=== PATIENT | male | born 1965 | race Caucasian/White ===

== ENCOUNTER → 2017-10-03 | Day surgery (SDC) | payer MEDICARE, MEDICAID ==
[~2017-10-03] MED LIST: ADVAIR 500-501 EACH INH; AZITHROMYCIN 2250 MG PO; BENZTROPINE MES1 MG PO; BETIMOL5 ML OP; BUSPIRONE HCL10 MG PO; CLONAZEPAM 0.50.5 M1 PO; COLACE100 MG PO; EPOGEN2000 UNIT/ HEMODIALYS; FLOMAX0.4 MG PO; FLUPHENAZINE 5 M5 MG PO; GABAPENTIN 100100 MG PO; GEMFIBROZIL 60600 MG PO; KEFLEX500 M1 PO; LOPRESSOR50 PO; NIACIN ER500 MG PO; NORVASC5 MG PO; NOVOLOG100 UNIT/1 SUBQ; PREDNISONE 10 M10 MG PO; RENAPLEX D PO; RENVELA800 MG PO; TIMOLOL GL0.5 %/5 M1 OPHTHALMIC; TRAZODONE HCL50 MG PO; VENTOLIN HFA 1818 GM INH; ZANTAC 150MG T150 MG PO
--- NOTE | ~2017-10-03 | PROC ---
[address] [address] PROCEDURE REPORT Name: ELISA MEDEROS Room: [facility].#: [id number] Admission: 10/03/17 Attend Phys: Efren Weston MD Discharge: Date of : 67 Report #: [id number] THIS REPORT FOR: //name// For GI report, please see the Provation report in Perceptive 7 content. By: [id number] Records Staff [facility] /JEREMIAH
[2017-10-03 12:46] LABS: HEMATOCRIT 29.9 % (42.0-52.0); HEMOGLOBIN 10.4 gm/dL (14.0-18.0); MCV 100.2 fL (80.0-100.0); MPV 6.8 fl. (7.2-11.1); RBC 2.98 mil/uL (4.50-6.00); RDW-CV 13.3 % (10.5-14.5); WBC 7.5 thou/uL (4.0-11.0)
[2017-10-03 13:02] LABS: CALCIUM 8.9 mg/dL (8.5-10.1); CREATININE 5.5 mg/dL (0.6-1.3); POTASSIUM 3.9 mmol/L (3.5-5.1)
[2017-10-03 13:06] LABS: ALBUMIN 2.8 g/dL (3.4-5.0); TOTAL BILIRUBIN 0.3 mg/dL (<0.1-1.0)
--- NOTE | 2017-10-03 16:03 | EKG ---
[place] [address] ELECTROCARDIOGRAM REPORT Name: ELISA MEDEROS Room: [facility]#: [id number] Admission: 10/03/17 Attend Phys: Efren Weston MD Discharge: Date of : 67 Report #: [id number] THIS REPORT FOR: //name// [facility] Test Date: 2017-10-03 Test Time: 12:05:50 Pat Name: ELISA MEDEROS Department: Room: Gender: M Windlasser: [facility] : 1965 Requested By: Efren Weston Order Number: [id number] Reading MD: Magdiel Lundberg Measurements Intervals [place] Rate: 68 P: 31 NM: 151 QRS: 4 QRSD: 95 T: 34 QT: 449 QTc: 478 Interpretive Statements Sinus rhythm Paired ventricular premature complexes Borderline prolonged QT interval No previous ECG available for comparison Electronically Signed On 10-03-2017 16:03:27 [employer]ANNING [employer]ISION SUPERINTENDENT by Magdiel Lundberg [email or web address] <ELECTRONICALLY SIGNED> By: Magdiel Lundberg MD, [facility] 10/03/17 1603 1205 1205 Magdiel Lundberg MD, FACC /EPI
--- NOTE | 2017-10-04 11:55 | S ---
[place] [address] SURGICAL PATH RPT PROCEDURE Name: MEDEROSELISA Mobley Room: [facility]#: [id number] Admission: 10/03/17 Date of : 67 Discharge: Report #: [id number] Path Case #: [id number] PATHOLOGY REPORT COLLECTION DATE: 10/03/2017 RECEIVED DATE: 10/03/2017 SUBMITTING PHYS: Dr. Efren Weston OTHER PHYS: Dr. Kofi Gates SPECIMEN(S) RECEIVED: A.Duodenum B.Transverse polyp * * * * * * * * * * * * FINAL DIAGNOSIS: A. Duodenal biopsy: - Mild active duodenitis with fundic gland metaplasia suggesting peptic ulcer disease, negative for granulomas, significant intraepithelial lymphocytosis and dysplasia. - See comment. B. Transverse colon polyp: - Tubular adenoma, negative for high grade dysplasia. COMMENT: Because there is no significant intraepithelial lymphocytosis in the duodenal biopsy (A), celiac disease is unlikely. (JUDAH:mml; 10/04/2017) PATHOLOGIST: Usman Callahan M.D. REPORT ELECTRONICALLY SIGNED BY: Usman Callahan M.D. DATE/TIME: 10/04/2017 11:55 * * * * * * * * * * * * GROSS PATHOLOGY: A. Received in formalin labeled "Elisa Mederos, duodenal biopsy," and additionally labeled on the requisition as "biopsy," is a segment of french soft tissue measuring 0.5 cm in maximum dimension. The specimen is submitted entirely in cassette A1. After filtration of the specimen container, no additional tissue was recovered. B. Received in formalin labeled "Elisa Mederos, transverse colon polyp," is a segment of french soft tissue measuring 0.3 cm in maximum dimension. The specimen is submitted entirely in cassette B1. (TSD; 10/03/2017) CLINICAL HISTORY: Rectal bleeding [facility] [address] [place] [address] SURGICAL PATH RPT PROCEDURE Name: ELISA MEDEROS Room: [facility]#: [id number] Admission: 10/03/17 Date of : 67 Discharge: Report #: [id number] Path Case #: [id number] INITIAL CPT CODE(S): A; 41273 B; 80809 Professional services performed by [employer] at [facility], [address] [place] [id number]. Technical services performed by [employer] at [address] [place] [address], [facility] [address] [address]. [facility] [address] [address] PHONE: [phone] DIRECTOR: Stefan Vasquez M.D. * * * END OF REPORT * * *
== END | disposition home or self-care (01) ==
LOC: M.SUR 10:15
PROVIDERS: Internal Medicine Gastroenterology
DX: D12.3 Benign neoplasm of transverse colon (principal); K64.8 Other hemorrhoids; K44.9 Diaphragmatic hernia without obstruction or gangrene; K29.80 Duodenitis without bleeding; K21.9 Gastro-esophageal reflux disease without esophagitis; F41.9 Anxiety disorder, unspecified; I12.0 Hypertensive chronic kidney disease with stage 5 chronic kidney disease or end stage renal disease; E11.22 Type 2 diabetes mellitus with diabetic chronic kidney disease; N18.6 End stage renal disease; E03.9 Hypothyroidism, unspecified; Z87.891 Personal history of nicotine dependence; Z99.2 Dependence on renal dialysis

== ENCOUNTER 2018-02-12 19:54 | Inpatient (IN) | payer MEDICARE, MEDICAID ==
[~2018-02-12] VITALS: Ht 172.7 cm; Wt 76.7 kg
[~2018-02-12 19:54] MED LIST changes: -AZITHROMYCIN 2250 MG PO; -BETIMOL5 ML OP; -COLACE100 MG PO; -KEFLEX500 M1 PO; -NOVOLOG100 UNIT/1 SUBQ; -PREDNISONE 10 M10 MG PO
[2018-02-12 19:58] VITALS: BP 124/64
[2018-02-12] MEDS ORDERED: COLACE100 MG PO (20:10)
[2018-02-12] MEDS ORDERED: NOVOLOG100 UNIT/1 SUBQ (20:10)
[2018-02-12] MEDS ORDERED: BETIMOL5 ML OP (20:11)
[2018-02-12 20:32] LABS: HEMOGLOBIN 10.7 gm/dL (14.0-18.0); MCH 34.5 pg (26.0-34.0); MCHC 34.6 g/dL (28.0-37.0); MCV 99.9 fL (80.0-100.0); MPV 7.2 fl. (7.2-11.1); NUCLEATED RBCS 0 /100WBC; PLATELET COUNT* 163 thou/uL (150-400); RBC 3.11 mil/uL (4.50-6.00); RDW-CV 13.9 % (10.5-14.5); WBC 15.8 thou/uL (4.0-11.0)
[2018-02-12 20:43] LABS: ANION GAP 11 mmol/L (7-16); BUN 50 mg/dL (7-18); CALCIUM 9.5 mg/dL (8.5-10.1); CHLORIDE 95 mmol/L (98-107); CO2 29 mmol/L (21-32); CREATININE 7.7 mg/dL (0.6-1.3); GLUCOSE 218 mg/dL (70-99); POTASSIUM 3.3 mmol/L (3.5-5.1); SODIUM 135 mmol/L (136-145)
[2018-02-12 20:55] LABS: ALBUMIN 2.6 g/dL (3.4-5.0); ALKALINE PHOSPHATASE 112 U/L (46-116); MAGNESIUM 2.2 mg/dL (1.8-2.4); NT-PRO BRAIN NAT PEPTIDE 6759 pg/mL (<300); SGOT 14 U/L (15-37); SGPT 10 U/L (30-65); TOTAL BILIRUBIN 0.6 mg/dL (<0.1-1.0); TOTAL PROTEIN 7.3 g/dL (6.4-8.2); TROPONIN-I LEVEL <0.06 ng/mL (<0.06)
[2018-02-12 21:21] LABS: BE 4.8 mmol/L (-2 to +3); pH 7.467 (7.340-7.450)
[2018-02-12 21:25] LABS: PO2 57.7 mmHg (75.0-100.0)
[2018-02-12 21:26] LABS: ABSOLUTE LYMPHOCYTES 0.6 thou/uL (0.8-5.3); ABSOLUTE MONOCYTES 0.9 thou/uL (0.0-1.2); ABSOLUTE NEUTROPHILS 14.2 thou/uL (1.6-8.1); PLATELET ESTIMATE ADEQUATE; POLYCHROMASIA Occasional
[2018-02-12 21:39] VITALS: BP 131/65
[2018-02-12 22:15] VITALS: BP 123/70
--- NOTE | 2018-02-13 04:01 | NUR ---
RECEIVED REPORT FROM CHICKEN SEXER, RONEY, AT 2134. PT ARRIVED TO UNIT VIA CART AT 2134. FAMILY AT BEDSIDE. PT ORIENTED TO ROOM AND CALL LIGHT. PT AAOX4, ON 6L O2 VIA NONREBREATHER MASK. PT'S [id number] IS GUARDIAN, ADMISSION PAPERWORK SIGNED. SEPSIS SCREENING COMPLETED WITHIN 1 HR OF PT ARRIVAL TO FLOOR AND NEGATIVE. PT DENIES PAIN. PROVIDED PT WITH FAN AND COOL WASHCLOTHS FOR TEMP OF 100.2 F. HOURLY ROUNDING COMPLETED. FALL PRECAUTIONS IN PLACE. CALL LIGHT WITHIN REACH.
[2018-02-13 04:03] VITALS: BP 137/77
[2018-02-13 08:00] VITALS: BP 136/81
--- NOTE | 2018-02-13 10:39 | EKG ---
[place] [address] ELECTROCARDIOGRAM REPORT Name: ELISA MEDEROS Room: [place] [address] ADM IN [facility]#: [id number] Admission: 02/12/18 Attend Phys: Sloan Kaplan MD Discharge: Date of : 67 Report #: [id number] THIS REPORT FOR: //name// [facility] ED Test Date: 2018-02-12 Test Time: 20:13:57 Pat Name: ELISA MEDEROS Department: Room: Gender: Student Worker: : 1965 Requested By: Ghada Blancas Order Number: [id number] MD: Oscar Hernandez Measurements Intervals [place] Rate: 85 P: 36 [place]: 149 QRS: 6 QRSD: 86 T: 50 QT: 462 QTc: 550 Interpretive Statements Sinus rhythm nonspecific st changes Prolonged QT interval Compared to ECG 10/03/2017 12:05:50 Ventricular premature complex(es) no longer present Electronically Signed On 02-13-2018 10:39:07 CDT by Oscar Hernandez [email or web address] <ELECTRONICALLY SIGNED> By: Oscar Hernandez MD, [facility] 02/13/18 1039 12 12 Oscar Hernandez MD, [facility] /EPI
[2018-02-13 12:20] VITALS: BP 172/82
--- NOTE | 2018-02-13 14:36 | NUR ---
INITIAL ASSESSMENT: Pt evaluated for d/c planning needs. Reviewed chart and spoke with nurse and pt's guardian at bedside. Pt was asleep and guardian did not want him awakened. Pt lives in house with spouse, mother and [id number]. Pt uses no DME and has not had home health. Pt has dialysis at [facility]. M-I-L or F-I-L provide transportation to/from dialysis. Plan is for pt to return home on d/c from hospital. Will remain available to assist as needed.
[2018-02-13 16:00] VITALS: BP 134/79
--- NOTE | 2018-02-13 19:06 | NUR ---
patient resting in bed. 6l per nasal canula. up with standby assist. jany rounding for patient safety and patinet is participating in plan of care.. vital signs stable.
[2018-02-14 00:12] VITALS: BP 138/83
--- NOTE | 2018-02-14 02:58 | NUR ---
PT ALERT ORIENTED. UP AD SEAN IN ROOM. BREATH SOUNDS COURSE WITH SOME WHEEZING. NONPRODUCTIVE COUGH NOTED. ON RA. DENIES PAIN. WILL CONTINUE TO MONITOR.
[2018-02-14 04:00] VITALS: BP 133/75
[2018-02-14 08:00] VITALS: BP 131/83
[2018-02-14] MEDS ORDERED: KEFLEX500 M1 PO (11:32)
[2018-02-14] MEDS ORDERED: AZITHROMYCIN 2250 MG PO (11:32)
[2018-02-14] MEDS ORDERED: PREDNISONE 10 M10 MG PO (11:32)
[2018-02-14 15:31] VITALS: BP 131/83
--- NOTE | 2018-02-14 19:41 | NUR ---
ORDER RECEVIDTO DISHCARG PABLITOTNET HOME TO SELF CARE WITH IN LAWS. MED REC, MEDICATIN EDCUAQTION, STROE EDUCATION, ADN NEED FOR FOLLOW UP APPOINTMENTS COVERED AND STATED UNDER STOOD.. HOURLY ROUNDING COMPLETED FOR PATIENT SAFETY. DC TIME OF 15:55.
--- NOTE | 2018-02-23 09:13 | CON ---
[address] [address] CONSULTATION Name: GATITOELISA DAYNA Room: [address] IN M.R.#: [id number] Admission: 02/12/18 Attend Phys: Sloan Kaplan MD Discharge: 02/14/18 Date of : 67 Report #: [id number] THIS REPORT FOR: //name// CC: Kofi Kaplan DATE OF SERVICE: 02/14/2018 NEPHROLOGY CONSULTATION CONSULTING PHYSICIAN: Trevor Bryant DO REASON FOR NEPHROLOGY CONSULTATION: End-stage renal disease for dialysis requirements. CHIEF COMPLAINT: Shortness of breath. HISTORY OF PRESENT ILLNESS: The patient is a very pleasant 52-year-old male who has a past medical history of end-stage renal disease, on hemodialysis every Tuesday, and Tuesday, has a left arm AV fistula, mostly independence [facility], came in with shortness of breath, which started 2 days prior to admission. He was admitted on 02/12/2018. Chest x-ray showed evidence of possible pneumonia and also fluid overload. He has other past medical history includes COPD, hypertension, insulin-dependent diabetes, coronary artery disease, hyperlipidemia, also schizophrenia. The patient was seen on dialysis this morning and it seems that his shortness of breath has improved. He is also being treated with steroids as well as ceftriaxone and Zithromax. REVIEW OF SYSTEMS: Shortness of breath, which has now improved. Other review of systems were done and they were negative. ALLERGIES: HALOPERIDOL, LITHIUM, AND VARENICLINE. PAST MEDICAL HISTORY: As above mentioned in the history of present illness. PAST SURGICAL HISTORY: He has a left arm AV fistula. HOME MEDICATIONS: Include fluphenazine, NovoLog, docusate, Epogen, Epogen is currently on hold, Renvela, buspirone, clonazepam, benztropine, fluticasone, ranitidine, metoprolol, tamsulosin, niacin, gemfibrozil, amlodipine, trazodone, gabapentin, timolol, albuterol. FAMILY HISTORY: Noncontributory. SOCIAL HISTORY: He has a legal guardian and he does [place] [address] CONSULTATION Name: ELISA MDEEROS Room: [address]#: [id number] Admission: 02/12/18 Attend Phys: Sloan Kaplan MD Discharge: 02/14/18 Date of : 67 Report #: [id number] or alcohol. Smoking history not known. PHYSICAL EXAMINATION: VITAL SIGNS: Blood pressure is 133/75, he is on 2 liters nasal cannula, he was seen on dialysis, respiratory rate is 15, pulse rate is 67, temperature 36.4. GENERAL: He is not in any acute distress, currently on dialysis, alert, oriented x 3. HEAD, EYES, EARS, NOSE AND THROAT: Mucous membranes are moist. NECK: There is no JVD. CHEST: Shows bilateral diminished breath sounds, but no crackles or wheezing heard. CARDIOVASCULAR: S1, S2 normal. No murmurs heard. ABDOMEN: Soft, nondistended, nontender. Bowel sounds are diminished. EXTREMITIES: He has left arm AV fistula with good bruit and thrill and use right now. Lower extremities, no edema, symmetrical extremities. NEUROLOGICAL FUNCTION: He was not responsive. His function is intact. PSYCHIATRIC: Mood seems to be normal. He is pleasant. LABORATORY DATA: From 02/12/2018, WBC was 15.8, hemoglobin was 10.7 and his sodium levels 135, his potassium was 3.3 and his other labs were reviewed. IMAGING: Chest x-ray was reviewed. ASSESSMENT AND PLAN: 1. End-stage renal disease, on hemodialysis every Tuesday, and Tuesday: The patient was seen on dialysis today. We are trying to remove as much fluid as we can. Chest x-ray is more consistent with pulmonary edema. 2. Shortness of breath, likely chronic obstructive pulmonary disease exacerbation could be pneumonia as well as fluid overload: The patient is getting antibiotics and steroids and dialyzing him today, trying to remove as much fluid as we can. 3. Anemia of chronic kidney disease: Epogen currently on hold because hemoglobin is at goal 10.7. 4. Hypokalemia: This was 2 days ago. The patient is being dialyzed with the higher K bath. 5. Secondary hyperparathyroidism, hyperphosphatemia: Continue with his home binders. Thank you for this consultation. We will continue to follow along with you. <ELECTRONICALLY SIGNED> By: Gina Diggs MD 02/23/18 0913 1108 Ethan Diggs MD /nt
== END 2018-02-14 16:30 | disposition home or self-care (01) | DRG 177 ==
LOC: M.ERS 19:54 → M.TBA-ER 21:07 → M.2W 21:07 → M.ERS 21:42 → M.2W 21:55
PROVIDERS: Physician Assistant Surgical; ADMIT Internal Medicine
PROC: 5A1D70Z Performance of Urinary Filtration, Intermittent, Less than 6 Hours Per Day (ICD-10-PCS; principal; 2018-02-14)
DX: J69.0 Pneumonitis due to inhalation of food and vomit (principal); N18.6 End stage renal disease; J96.21 Acute and chronic respiratory failure with hypoxia; I12.0 Hypertensive chronic kidney disease with stage 5 chronic kidney disease or end stage renal disease; R65.10 Systemic inflammatory response syndrome (SIRS) of non-infectious origin without acute organ dysfunction; J44.9 Chronic obstructive pulmonary disease, unspecified; E11.22 Type 2 diabetes mellitus with diabetic chronic kidney disease; I25.10 Atherosclerotic heart disease of native coronary artery without angina pectoris; E78.5 Hyperlipidemia, unspecified; F20.9 Schizophrenia, unspecified; D63.1 Anemia in chronic kidney disease; E87.6 Hypokalemia; E21.1 Secondary hyperparathyroidism, not elsewhere classified; E83.39 Other disorders of phosphorus metabolism; F41.9 Anxiety disorder, unspecified; G47.00 Insomnia, unspecified; F31.9 Bipolar disorder, unspecified; E11.39 Type 2 diabetes mellitus with other diabetic ophthalmic complication; H40.9 Unspecified glaucoma; F17.210 Nicotine dependence, cigarettes, uncomplicated; J98.01 Acute bronchospasm; R09.02 Hypoxemia; Z99.2 Dependence on renal dialysis; I25.2 Old myocardial infarction; Z88.8 Allergy status to other drugs, medicaments and biological substances; Z79.899 Other long term (current) drug therapy; Z79.4 Long term (current) use of insulin; Z85.828 Personal history of other malignant neoplasm of skin

== ENCOUNTER → 2018-03-28 | Outpatient (CLI) | payer MEDICARE, MEDICAID ==
[~2018-03-28] MED LIST changes: +AZITHROMYCIN 2250 MG PO; +BETIMOL5 ML OP; +COLACE100 MG PO; +KEFLEX500 M1 PO; +NOVOLOG100 UNIT/1 SUBQ; +PREDNISONE 10 M10 MG PO
== END ==
LOC: M.RAD 09:51
DX: J18.9 Pneumonia, unspecified organism (principal); I10 Essential (primary) hypertension; E11.9 Type 2 diabetes mellitus without complications; J44.9 Chronic obstructive pulmonary disease, unspecified